=== PATIENT | female | born 1965 | race Caucasian/White ===

== ENCOUNTER 2024-03-11 13:13 | Emergency (ER) | payer OTHER, SELFPAY ==
[2024-03-11 13:15] VITALS: BP 127/66
[2024-03-11] MEDS: TORADOL 30 MG IV (15:05)
[2024-03-11] MEDS: DECADRON 10 MG IV (15:05)
--- NOTE | 2024-03-11 16:25 | ED.GENMED ---
History of Present Illness
General
Chief Complaint: Back Pain
Source: patient
Exam Limitations: none
Time Seen by Provider: 03/11/24 14:35
Nursing documentation reviewed up to this point in time: agreed with
History of Present Illness
History of Present Illness:
Patient to ED wt complaint of lower back pain States she is residing at a sober house. She was cleaning shower at facility when pain started. Complains of worsening spasms to back. Brought by facility to ED for eval.
Past History
Past History
ED Past Medical History: None
Review of Systems
Review of Systems
Allergies reviewed?: Yes
All Other Systems: ROS reviewed and negative except as documented in HPI and ROS
Constitutional: Reports no symptoms
EENT: Reports no symptoms
Respiratory: Reports no symptoms
Cardiac: Reports no symptoms
ABD/GI: Reports no symptoms
Musculoskeletal: Reports back pain
Skin: Reports no symptoms
Neurological: Reports no symptoms
Psychiatric: Reports no symptoms
Phy Exam
General Physical Exam
General Presentation: well appearing and mild distress
General age: appears stated age
General Skin: warm and dry
General Habitus: normal
General Mental: alert
Reflexes
Reflexes: +3: Left patellar and +3: Right patellar
Musculoskeletal Exam
Musculoskeletal Exam: full ROM, neuro vasc intact and other (Ambulating wthout assistance. Gait steady, equal strenght bilaterally)
Skin Exam
Skin Exam: normal color and warm/dry
Psychiatric Exam
Psychiatric Exam: normal mood/affect
Course
Orders/Labs/Results
Orders:
Orders
03/11/24 14:39
Dexamethasone Sod Phosphate [Decadron] 10 mg IV NOW STA
Ketorolac [Toradol] 30 mg IV NOW STA
Lumbar Spine Complete, 4 View [CR Lumbar Spine Comp Min 4 Vw*] Urgent
Comment:
Reason For Exam: pain
Vital Signs
Initial and Last Documented VS:
Initial Vital Signs
Temp Pulse Resp BP Pulse Ox
98.0 F 68 20 127/66 95
03/11/24 13:15 03/11/24 13:15 03/11/24 13:15 03/11/24 13:15 03/11/24 13:15
Last Documented Vital Signs
Temp Pulse Resp BP Pulse Ox
98.0 F 53 16 116/78 96
03/11/24 13:15 03/11/24 16:37 03/11/24 16:37 03/11/24 16:37 03/11/24 16:37
*Radiology
Radiology exam reviewed: radiology read reviewed
*Pulse Oximetry
Patient hypoxic: no
*Critical Care Note
Total Time (30-74mins, 75-104mins- exclusive of procedures): Not Applicable
ED Attending Note
-
Portions of this chart may have been created with voice recognition software.� Occasional wrong word or��sound alike� substitutions may have occurred due to the inherent limitations of voice recognition software.
Discharge Plan
Departure
Patient Disposition: Home (Routine Discharge)
Date of Disposition: 03/11/24
Time of Disposition: 16:26
Patient with high blood pressure during this ER visit?: No
Condition: Good
Covid-19: Not Applicable
Discharge Problem:
Low back pain
Instructions: Low Back Pain (DC), Back Muscle Strain, Using Cold for Pain, Ibuprofen
Prescriptions:
No Action
tramadol 50 MG tablet
50 mg PO Q6HPRN PRN (Reason: pain) Qty: 10 0RF
gentamicin 1 DROP drops
1 drp ophthalmic (eye) Q4 5 Days 0RF
Referrals:
Donnie Marroquin, DO [Non-Admitting Privileges] - Call in 1-3 days for appt
NONE,* [Family Provider] -
Interventions
Interventions:
*Risk Screen - Suicide Last Done: 03/11/24 16:38
*General Assessment Last Done: 03/11/24 16:38
*Neglect/Abuse Screening Last Done: 03/11/24 16:38
ED- Fall Risk Assessment Last Done: 03/11/24 16:38
*ED COVID-19 Vaccine History Last Done: 03/11/24 16:38
*Nursing Disposition Last Done: 03/11/24 16:38
ED-Musculoskeletal Assessment Last Done: 03/11/24 15:10
Discharge Date and Time
Discharge Date/Time: 03/11/24 16:39
Print Language: BELARUSIAN
Musculoskeletal Injury Exam
Musculoskeletal Injury Exam
Bilateral Lower Back:
Pain with Movement?: Moderate
Tender to palpation?: Moderate
Soft tissue swelling?: None
External deformity and angulation?: None
Joint effusion?: None
Contusion?: None
Hematoma-local bleeding into tissue?: None
Strain- Sprain- Tear (Connective tissue injury)?: Moderate
Crepitus with movement?: No
Joint instability?: No
Malalignment/deformity?: No
Range of motion: Limited
Distal skin color and temperature: normal-warm & good color
Capillary Refill: normal
Normal distal neurovascular exam?: Yes
[2024-03-11 16:37] VITALS: BP 116/78
== END 2024-03-11 16:39 | disposition home or self-care (01) ==
LOC: EMR 13:13
PROVIDERS: EMERGENCY PHYSICIAN Student in an Organized Health Care Education/Training Program
DX: M54.50 Low back pain, unspecified (principal)
CPT/HCPCS: 99284; 96374; 96375; 72110

== ENCOUNTER 2024-06-27 09:05 | Emergency (ER) | payer OTHER, SELFPAY ==
[2024-06-27 09:29] VITALS: BP 120/63
[2024-06-27 11:37] VITALS: BMI 29.9
--- NOTE | 2024-06-27 11:39 | ED.GENMED ---
History of Present Illness
General
Chief Complaint: Skin Surface Trauma
Source: patient
Exam Limitations: none
Time Seen by Provider: 06/27/24 11:13
Nursing documentation reviewed up to this point in time: agreed with
History of Present Illness
History of Present Illness:
59-year-old female presenting to the emergency department today with concerns of a cut to her right thumb with a mandolin prior to arrival. Trouble controlling bleeding at home unsure when her last tetanus shot was. Denies numbness weakness or
additional concerns.
Past History
Past History
ED Past Medical History: None
Review of Systems
Review of Systems
Allergies reviewed?: Yes
All Other Systems: ROS reviewed and negative except as documented in HPI and ROS
Phy Exam
Physical Exam
Physical Exam:
GENERAL: Alert , in no apparent distress
EYE: pupils equal and reactive
NECK: Supple, no significant adenopathy.
ENT: o/p clr, mmm.
CARDIAC: Regular rate and rhythm .
LUNGS: Clear breath sounds bilaterally, no acute respiratory distress, no wheezes/rales/rhonchi
ABDOMEN: Soft, without focal tenderness, no r/g, no cvat
NEUROLOGICAL: Alert and oriented, no focal neuro deficits
SKIN: Superficial skin avulsion to the right thumb on the radial distal aspect just distal to the nailbed. Roughly 1 cm in total size warm and dry, skin intact.
MUSCULOSKELETAL: No edema, well perfused.
PSYCH: Normal and appropriate interaction.
Course
Orders/Labs/Results
Orders:
Orders
06/27/24 11:37
Tetanus/Diphth/Acelpertussis [Adacel] 0.5 ml IM .ONCE ONE
Vital Signs
Initial and Last Documented VS:
Initial Vital Signs
Temp Pulse Resp BP Pulse Ox
98.5 F 70 18 120/63 97
06/27/24 09:29 06/27/24 09:29 06/27/24 09:29 06/27/24 09:29 06/27/24 09:29
Last Documented Vital Signs
Temp Pulse Resp BP Pulse Ox
98.5 F 70 18 120/63 97
06/27/24 09:29 06/27/24 09:29 06/27/24 09:29 06/27/24 09:29 06/27/24 09:29
Procedures
Laceration Closure
Right Distal Radial Thumb:
Status of Wound: clean
Size of Wound in cm: 1
Description of Wound Edges: other (Skin avulsion)
Preparation: cleaned with saline
Revision/Debridement: routine- no revision
Wound exploration: explored to base- no FB
Type of Closure: Dermabond-skin glue
MDM/Problems Addressed
MDM/Problems Addressed:
59-year-old female presenting to the emergency department today with concerns of a skin avulsion from a mandolin prior to arrival to her distal thumb. This was a small area cleaned thoroughly patient was given a tetanus shot. Bleeding was
initially controlled with a tourniquet Dermabond was then placed which continued to control the bleeding otherwise patient stable for discharge return precautions given.
*Critical Care Note
Total Time (30-74mins, 75-104mins- exclusive of procedures): Not Applicable
ED Attending Note
-
Portions of this chart may have been created with voice recognition software.� Occasional wrong word or��sound alike� substitutions may have occurred due to the inherent limitations of voice recognition software.
Discharge Plan
Departure
Patient Disposition: Home (Routine Discharge)
Date of Disposition: 06/27/24
Time of Disposition: 11:39
Patient with high blood pressure during this ER visit?: No
Condition: Good
Covid-19: Not Applicable
Discharge Problem:
Avulsion of skin of finger
Instructions: Laceration Repair With Glue (DC)
Prescriptions:
No Action
tramadol 50 MG tablet
50 mg PO Q6HPRN PRN (Reason: pain) Qty: 10 0RF
gentamicin 1 DROP drops
1 drp ophthalmic (eye) Q4 5 Days 0RF
Referrals:
UNKNOWN - PT DOES,NOT KNOW [Family Provider] -
Activity Restrictions/Additional Instructions:
You came to the emergency department today with concerns of a superficial skin avulsion. This area was cleaned and covered with Dermabond here. Please keep the area clean covered and return for any worsening, new or concerning symptoms.
Interventions
Interventions:
*Risk Screen - Suicide Last Done: 06/27/24 11:37
*General Assessment Last Done: 06/27/24 11:37
*Neglect/Abuse Screening Last Done: 06/27/24 11:37
ED-Skin Assessment Last Done: 06/27/24 11:33
Discharge Date and Time
Print Language: GREEK
[2024-06-27] MEDS: ADACEL 0.5 ML IM (11:40)
== END 2024-06-27 11:52 | disposition home or self-care (01) ==
LOC: EMR 09:05
PROVIDERS: EMERGENCY PHYSICIAN Emergency Medicine
DX: S61.011A Laceration without foreign body of right thumb without damage to nail, initial encounter (principal); W45.8XXA Other foreign body or object entering through skin, initial encounter; Z23 Encounter for immunization
CPT/HCPCS: 99282; 12001; 90471; 90715